=== PATIENT | female | born 1995 | race Asian ===

== ENCOUNTER 2022-08-24 20:47 | Inpatient (IN) | payer BC, OTHER, SELFPAY ==
[~2022-08-24] VITALS: Ht 165.1 cm; Wt 69.0 kg
[2022-08-24] MEDS ORDERED: IBUP80TA PO (20:57)
[2022-08-24] MEDS ORDERED: CLIN150C17 PO (20:57)
[2022-08-24] MEDS ORDERED: KETOROLAC 30 MG/ML 1ML VIAL IV ONE (23:50)
[2022-08-24] MEDS ORDERED: CLINDAMYCIN 600 MG in IV 1 EA IV ONE (23:50)
[2022-08-24] MEDS ORDERED: NS 1,000 ML IV ONE (23:50)
[2022-08-25 00:10] LABS: BASO % 0.1 % (0.0-1.0); EOS % 0.3 % (0.0-3.0); HEMATOCRIT 39.8 % (36.0-47.0); HEMOGLOBIN 12.8 g/dl (12.0-15.5); LYMPH # 1.1 10^3/uL (1.5-5.0); LYMPH % 7.8 % (24.0-44.0); MEAN CORPUSCULAR HEMOGLOBIN 26.1 pg (27.0-33.0); MEAN CORPUSCULAR HGB CONC 32.2 g/dl (32.0-36.5); MEAN CORPUSCULAR VOLUME 81.2 fl (80.0-96.0); MONO # 1.2 10^3/uL (0.0-0.8); MONO % 8.4 % (2.0-8.0); NEUTROPHILS # 11.9 10^3/uL (1.5-8.5); NEUTROPHILS % 82.8 % (36.0-66.0); PLATELET COUNT, AUTOMATED 166 10^3/uL (150-450); WHITE BLOOD COUNT 14.4 10^3/uL (4.0-10.0)
[2022-08-25] MEDS ORDERED: ISOVUE-370 76% 100ML VIAL As Ordered ONE (00:13)
[2022-08-25] MEDS ORDERED: MORPHINE 2 MG/ML 1ML VIAL IV PRN (02:40)
[2022-08-25] MEDS ORDERED: KETOROLAC 30 MG/ML 1ML VIAL IV PRN (02:40)
[2022-08-25] MEDS ORDERED: ONDANSETRON 4MG 2ML VIAL IV PRN (02:40)
[2022-08-25 03:34] LABS: RSV AMPLIFICATION NEGATIVE (NEGATIVE)
[2022-08-25] MEDS ORDERED: CLEO300C2 PO (03:42)
[2022-08-25] MEDS ORDERED: ACET-897 PO (03:42)
[2022-08-25] MEDS ORDERED: IBUP1TAB7 PO (03:42)
[2022-08-25 04:30] VITALS: BP 116/70
[2022-08-25] MEDS: LR 1,000 ML IV SCH ×2 (04:51→14:59)
[2022-08-25] MEDS ORDERED: HOME MED LIST COMPLETE! XX SCH (06:05)
[2022-08-25 06:26] LABS: BASO % 0.1 % (0.0-1.0); EOS % 0.1 % (0.0-3.0); HEMATOCRIT 37.9 % (36.0-47.0); HEMOGLOBIN 12.3 g/dl (12.0-15.5); LYMPH # 0.5 10^3/uL (1.5-5.0); MEAN CORPUSCULAR HEMOGLOBIN 26.5 pg (27.0-33.0); MEAN CORPUSCULAR HGB CONC 32.5 g/dl (32.0-36.5); MEAN CORPUSCULAR VOLUME 81.5 fl (80.0-96.0); MONO # 0.2 10^3/uL (0.0-0.8); MONO % 1.6 % (2.0-8.0); NEUTROPHILS # 11.3 10^3/uL (1.5-8.5); NEUTROPHILS % 93.4 % (36.0-66.0); PLATELET COUNT, AUTOMATED 167 10^3/uL (150-450); RED BLOOD COUNT 4.65 10^6/uL (4.00-5.40); WHITE BLOOD COUNT 12.2 10^3/uL (4.0-10.0)
[2022-08-25 06:37] LABS: INR 1.11; PROTHROMBIN TIME 14.5 SECONDS (12.5-14.5)
[2022-08-25 06:38] LABS: PARTIAL THROMBOPLASTIN TIME 40.5 SECONDS (24.8-34.2)
[2022-08-25 07:00] LABS: BLOOD UREA NITROGEN 10 MG/DL (9-23); CALCIUM LEVEL 8.5 MG/DL (8.5-10.1); CARBON DIOXIDE LEVEL 23 MMOL/L (20-31); CHLORIDE LEVEL 105 MMOL/L (98-107); GLOMERULAR FILTRATION RATE > 60.0 (>60); GLUCOSE, FASTING 135 MG/DL (60-100); POTASSIUM SERUM 4.4 MMOL/L (3.5-5.1); SODIUM LEVEL 139 MMOL/L (136-145)
[2022-08-25] MEDS: CLINDAMYCIN 600 MG in IV 1 EA IV SCH ×2 (07:59→16:00)
[2022-08-25 08:00] VITALS: BP 121/61
[2022-08-25 12:00] VITALS: BP 115/64
[2022-08-25] MEDS: ACETAMINOPHEN TAB 650MG DOSE (2X325MG) PO PRN (15:07)
[2022-08-25 16:00] VITALS: BP 110/58
[2022-08-25 20:00] VITALS: BP 115/59
[2022-08-26] VITALS: BP 105/58
[2022-08-26] MEDS: LR 1,000 ML IV SCH (00:20)
[2022-08-26] MEDS: CLINDAMYCIN 600 MG in IV 1 EA IV SCH ×2 (01:00→08:19)
[2022-08-26 04:00] VITALS: BP 107/67
[2022-08-26 06:45] LABS: HEMATOCRIT 34.5 % (36.0-47.0); HEMOGLOBIN 11.4 g/dl (12.0-15.5); MEAN CORPUSCULAR HEMOGLOBIN 26.7 pg (27.0-33.0); MEAN CORPUSCULAR VOLUME 80.8 fl (80.0-96.0); PLATELET COUNT, AUTOMATED 180 10^3/uL (150-450); RED BLOOD COUNT 4.27 10^6/uL (4.00-5.40); WHITE BLOOD COUNT 11.8 10^3/uL (4.0-10.0)
[2022-08-26] MEDS: ACETAMINOPHEN TAB 650MG DOSE (2X325MG) PO PRN (06:46)
[2022-08-26 07:16] LABS: BLOOD UREA NITROGEN 11 MG/DL (9-23); CALCIUM LEVEL 8.7 MG/DL (8.5-10.1); CARBON DIOXIDE LEVEL 24 MMOL/L (20-31); CHLORIDE LEVEL 106 MMOL/L (98-107); CREATININE FOR GFR 0.57 MG/DL (0.55-1.30); GLOMERULAR FILTRATION RATE > 60.0 (>60); GLUCOSE, FASTING 144 MG/DL (60-100); POTASSIUM SERUM 4.2 MMOL/L (3.5-5.1); SODIUM LEVEL 140 MMOL/L (136-145)
[2022-08-26 08:00] VITALS: BP 105/51
[2022-08-26] MEDS ORDERED: IBUP-1114 PO (09:40)
[2022-08-26] MEDS ORDERED: ACID1TAB PO (09:40)
[2022-08-26] MEDS ORDERED: CLEO300C2 PO (09:40)
[2022-08-26] MEDS ORDERED: ACET1TAB55 PO (09:40)
== END 2022-08-26 11:25 | disposition home or self-care (01) | DRG 721 ==
LOC: M ED 20:47 → M ED INP 08-25 02:40 → M PED 08-25 04:53
PROVIDERS: ADMIT Internal Medicine; ATTEND Student in an Organized Health Care Education/Training Program
DX: T81.40XA Infection following a procedure, unspecified, initial encounter (principal); D72.829 Elevated white blood cell count, unspecified; Z79.2 Long term (current) use of antibiotics; Z79.899 Other long term (current) drug therapy; Z88.1 Allergy status to other antibiotic agents; Z20.822 Contact with and (suspected) exposure to COVID-19